=== PATIENT | male | born 2000 ===

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

== ENCOUNTER → 2022-12-04 | Outpatient (CLI) | payer OTHER ==
[~2022-12-04] MED LIST: BENADRYL25 MG PO; Bactrim Ds Tab1 EACH PO; EPIPEN 2-P0.3 MG/0.3 IM; KETO10 PO; Pepcid40 MG PO; Prednisone50 MG PO; Pyridium200 MG PO
[2022-12-06 16:08] LABS: HIV AB/P24 AG SCREEN Non Reactive (Non Reactive)
== END | disposition home or self-care (01) ==
LOC: LAB SHORT 17:23
PROVIDERS: Family Medicine
DX: N34.2 Other urethritis (principal); Z72.51 High risk heterosexual behavior
CPT/HCPCS: 84460; 86592